=== PATIENT | female | born 1970 | race Asian ===

== ENCOUNTER 2018-03-16 12:45 | Emergency (ER) | payer OTHER ==
[2018-03-16 13:25] LABS: ADD MAN DIFF? NO
[2018-03-16 13:30] LABS: ABNORMAL IP MESSAGE 1; BASOPHILS % 0.7 % (0.0-2.0); EOSINOPHILS # 0.1 10^3/ul (0.0-0.5); EOSINOPHILS % 1.2 % (0.0-7.0); HEMATOCRIT 30.8 % (37.0-47.0); HEMOGLOBIN 8.2 g/dl (12.0-16.0); LYMPHOCYTES % 23.6 % (15.0-51.0); MEAN CORPUSCULAR HEMOGLOBIN 18.6 pg (29.0-33.0); MEAN CORPUSCULAR HGB CONC 26.6 g/dl (32.0-37.0); MEAN CORPUSCULAR VOLUME 69.8 fl (82.0-101.0); MEAN PLATELET VOLUME 10.4 fl (7.4-10.4); MONOCYTE # 0.5 10^3/ul (0.3-0.9); MONOCYTES % 12.3 % (0.0-11.0); NEUTROPHIL # 2.7 10^3/ul (1.6-7.5); PLATELET COUNT 214 10^3/UL (140-415); RED BLOOD COUNT 4.41 10^6/ul (4.20-5.40); RED CELL DISTRIBUTION WIDTH 22.5 % (11.5-14.5)
[2018-03-16 13:30] LABS: WHITE BLOOD COUNT 4.3 10^3/ul (4.8-10.8)
[2018-03-16 13:31] LABS: POSITIVE DIFF @See below
[2018-03-16 13:46] LABS: ALANINE AMINOTRANSFERASE 31 IU/L (13-69); ALBUMIN 4.1 g/dl (3.3-4.9); ALKALINE PHOSPHATASE 83 IU/L (42-121); ANION GAP 18 (8-16); ASPARTATE AMINO TRANSFERASE 37 IU/L (15-46); BILIRUBIN,INDIRECT 1.1 mg/dl (0-1.1); BILIRUBIN,TOTAL 1.1 mg/dl (0.2-1.3); BLOOD UREA NITROGEN 10 mg/dl (7-20); CALCIUM 8.8 mg/dl (8.4-10.2); CARBON DIOXIDE 24 mmol/L (21-31); CHLORIDE 103 mmol/L (97-110); CREATININE 0.83 mg/dl (0.44-1.00); GLUCOSE 104 mg/dl (70-220); POTASSIUM 3.8 mmol/L (3.5-5.1); SODIUM 141 mmol/L (135-144); TOTAL PROTEIN 8.9 g/dl (6.1-8.1)
[2018-03-16 13:58] LABS: B-TYPE NATRIURETIC PEPTIDE 2150 PG/ML (0-125); INR 1.34; PROTIME 16.8 Sec (11.9-14.9); PT RATIO 1.3
[2018-03-16 13:59] LABS: PARTIAL THROMBOPLASTIN TIME 33.9 Sec (25.0-35.0); TROPONIN-I < 0.012 ng/ml (0.000-0.120)
[2018-03-16] MEDS: IOHEXOL 100 ML (15:05)
[2018-03-16] MEDS: SOD CHLORIDE 0.9% 100 ML (15:05)
== END 2018-03-16 18:55 | disposition short-term general hospital (02) ==
LOC: E/R 12:45
DX: I50.9 Heart failure, unspecified (principal); R60.0 Localized edema; I42.9 Cardiomyopathy, unspecified; I51.7 Cardiomegaly; R14.0 Abdominal distension (gaseous); D72.810 Lymphocytopenia; D50.9 Iron deficiency anemia, unspecified; J98.59 Other diseases of mediastinum, not elsewhere classified; R40.2252 Coma scale, best verbal response, oriented, at arrival to emergency department; R40.2142 Coma scale, eyes open, spontaneous, at arrival to emergency department; R40.2362 Coma scale, best motor response, obeys commands, at arrival to emergency department
CPT/HCPCS: 36415; 71045; 71275; 80048; 80076; 83880; 84484; 85025; 85610; 85730; 93005; 99285-25

== ENCOUNTER 2018-03-24 11:31 | Day surgery (SDC) | payer OTHER ==
[2018-03-24] MEDS ORDERED: EPHEDrine SULFATE 50 MG/5 ML SYG (13:15)
[2018-03-24] MEDS ORDERED: LIDOCAINE 2% (SDV) 5 ML INJ (13:15)
[2018-03-24] MEDS ORDERED: PROPOFOL 40 ML (13:15)
[2018-03-24] MEDS: SOD CHLORIDE 0.9% 250 ML IV (16:37)
== END 2018-03-24 17:25 | disposition short-term general hospital (02) ==
LOC: CCL 11:31 → SDS 11:31 → CCL 17:25
DX: I50.9 Heart failure, unspecified (principal)
CPT/HCPCS: 84703; 93312; 93325